=== PATIENT | female | born 1990 | race African-American/Black ===

== ENCOUNTER 2017-06-27 11:41 | Emergency (ER) | payer OTHER ==
[~2017-06-27 11:41] MED LIST: DOXY100C PO; HYDR-3533 PO; ZOFR4TAB3 SL
[2017-06-27 11:42] VITALS: BP 103/64; PULSE 88; RESP 16; TEMP 98.4; O2SAT 98
[2017-06-27] MEDS ORDERED: IBUP-232 PO (12:51)
[2017-06-27] MEDS ORDERED: CYCL5TAB PO (12:51)
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
== END 2017-06-27 13:20 | disposition home or self-care (01) ==
LOC: NEPK 11:41
DX: S39.012A Strain of muscle, fascia and tendon of lower back, initial encounter (principal); S16.1XXA Strain of muscle, fascia and tendon at neck level, initial encounter; V49.50XA Passenger injured in collision with unspecified motor vehicles in traffic accident, initial encounter; Y92.488 Other paved roadways as the place of occurrence of the external cause
CPT/HCPCS: 99283

== ENCOUNTER 2017-07-03 11:42 | Emergency (ER) | payer SELFPAY ==
[~2017-07-03] VITALS: Ht 167.6 cm; Wt 57.0 kg
[~2017-07-03 11:42] MED LIST changes: +CYCL5TAB PO; +IBUP-232 PO
[2017-07-03 11:44] VITALS: BP 124/78; PULSE 46; RESP 26; TEMP 97.9; O2SAT 97
[2017-07-03] MEDS ORDERED: SODIUM CHLOR 0.9% 1000 ML INJ 1,000 ML IV SCH (12:08)
--- NOTE | 2017-07-03 12:08 | PD ---
HPI Chief Complaint: GI Complaint Time Seen by Provider: 11:59 Travel History International Travel<30 days: No Contact w/Intl Traveler<30days: No Traveled to known affect area: No History of Present Illness HPI 27-year-old female presents to the emergency department complaining of nausea vomiting and diarrhea that started at approximately 8 AM this morning. She reports drinking multiple glasses of tequila last night and had her last drink at 4 AM this morning. Reports generalized abdominal pain only with vomiting. Denies recent illness. Denies fevers. Denies blood in stool or urine. Denies dysuria. Has tried drinking water and Gatorade with no resolution of symptoms. Her last menstrual period was sometime in May but was unable to verify date. Symptoms are moderate in severity. No known allergies. Does not establish primary care provider. Denies significant past medical history. Does not take any current medications. Has no other medical complaints. No other modifying factors or associated signs and symptoms. PFSH Past Medical History Asthma: Yes ?: Not LMP: 06/08/17 Social History Alcohol Use: Yes (social) Tobacco Use: Yes ( cigarettes a day) Substance Use: No Allergies-Medications (Allergen,Severity, Reaction): Coded Allergies: No Known Allergies (Verified Adverse Reaction, Unknown, 07/03/17) Reported Meds & Prescriptions Reported Meds & Active Scripts Active Flexeril (Cyclobenzaprine HCl) 5 Mg Tab 5 Mg PO TID 10 Days Ibuprofen 600 Mg Tab 600 Mg PO Q6H PRN Lortab (Hydrocodone-Acetaminophen) 5-325 Mg Tab 1-2 Tab PO Q6H PRN Zofran Odt (Ondansetron Odt) 4 Mg Tab 4 Mg SL Q6HR PRN Doxycycline Hyclate 100 Mg Cap 100 Mg PO BID 7 Days Review of Systems Except as stated in HPI: all other systems reviewed are Neg Physical Exam Narrative GENERAL: Well-nourished, well-developed thin, black female patient, in no acute distress SKIN: Warm and dry. HEAD: Atraumatic. Normocephalic. EYES: Pupils equal and round. No scleral icterus. No injection or drainage. ENT: Mucosa pink and moist. Airway patent. NECK: Trachea midline. CARDIOVASCULAR: Regular rate and rhythm. No murmur appreciated. RESPIRATORY: No accessory muscle use. Clear to auscultation. Breath sounds equal bilaterally. GASTROINTESTINAL: Abdomen soft, non-tender, nondistended. Hepatic and splenic margins not palpable. Bowel sounds are active 4 quadrants. MUSCULOSKELETAL: No obvious deformities. No clubbing. No cyanosis. No edema. NEUROLOGICAL: Awake and alert. Oriented 3. No obvious cranial nerve deficits. Motor grossly within normal limits. Normal speech. PSYCHIATRIC: Appropriate mood and affect; insight and judgment normal. Data Data Last Documented VS Vital Signs Date Time Temp Pulse Resp B/P (MAP) Pulse Ox O2 Delivery O2 Flow Rate FiO2 07/03/17 13:53 60 18 118/72 (87) 98 07/03/17 11:44 97.9 Orders Orders Lipase (07/03/17 12:08) Iv Access Insert/Monitor (07/03/17 12:08) Ondansetron Inj (Zofran Inj) (07/03/17 12:15) Sodium Chlor 0.9% 1000 Ml Inj (Ns 1000 M (07/03/17 12:08) Sodium Chloride 0.9% Flush (Ns Flush) (07/03/17 12:15) Ondansetron Inj (Zofran Inj) (07/03/17 13:15) Ed Discharge Order (07/03/17 13:33) Labs Laboratory Tests Test 07/03/17 12:25 Lipase 50 U/L MDM Medical Decision Making Medical Screen Exam Complete: Yes Emergency Medical Condition: Yes Medical Record Reviewed: Yes Differential Diagnosis Gastroenteritis, alcohol-induced gastritis, alcohol intoxication Narrative Course 27-year-old female with vomiting and diarrhea that started approximately 8 AM this morning. Patient reports drinking multiple glasses of tequila last night and her last drink was at 4 AM. I discussed the patient with Dr. Silverio, attending physician, and he recommended to check a lipase, administer fluids and Zofran. Orders entered. 1315: Lipase 50. Patient says she is feeling better but still feels nauseated. Second dose of Zofran ordered. IV fluids hanging. 1533: Patient with improvement in symptoms. She denies nausea time. She has not vomited since her first dose of zofran. Dr. Silverio agrees with discharge. Instructed patient to follow up with primary care provider. Patient verbalizes understanding and agreement with treatment plan. Patient is medically cleared and stable for discharge. Discussed reasons to return to the emergency department. Patient agrees with treatment plan. The patients vital signs are stable and the patient is stable for outpatient follow-up and treatment. Patient discharged home, stable and in no acute distress. Diagnosis Primary Impression: Gastroenteritis Referrals: [facility] Primary Care Physician Patient Instructions: Alcohol Intoxication (ED), Gastroenteritis (ED), General Instructions Additional Instructions: Increase fluid intake, starting with clear fluids; advancing to a bland diet as tolerated [place] diet to include crackers, rice, toast, bananas as tolerated, advancing slowly to regular diet Follow-up primary care provider Return to emergency department immediately with worsening of symptoms Med/Other Pt SpecificInfo: No Change to Meds, No Meds Exist/No RX given Disposition: 01 DISCHARGE HOME Condition: Stable Kimberly Olivares Jul 03, 2017 12:07
[2017-07-03] MEDS ORDERED: SODIUM CHLORIDE 0.9% FLUSH 10 ML FLUSH IV FLUSH PRN (12:15)
[2017-07-03] MEDS ORDERED: ONDANSETRON HCL 4 MG/2 ML VIAL IVP ONE (12:15)
[2017-07-03] MEDS ORDERED: ONDANSETRON HCL 4 MG/2 ML VIAL IV PUSH ONE (13:15)
[2017-07-03 13:53] VITALS: BP 118/72
== END 2017-07-03 19:59 | disposition home or self-care (01) ==
LOC: NEPC 11:42
DX: K52.9 Noninfective gastroenteritis and colitis, unspecified (principal)
CPT/HCPCS: 83690; 96374; 99284; J2405; J7030